=== PATIENT | male | born 1985 | race African-American/Black ===

== ENCOUNTER 2021-05-12 02:11 | Emergency (ER) | payer OTHER ==
[~2021-05-12] VITALS: Ht 165.1 cm; Wt 59.0 kg
--- NOTE | ~2021-05-12 | EMS ---
[address] [address] EMS Patient Care Report Name: FLOR MERCADO Room #: DEP SHADIA Daniel#: [id number] Admission: 05/12/21 Attend Phys: Discharge: 05/12/21 Date of : [birth year] Report #: [id number] THIS REPORT FOR: //name// Report Transmitted: 05/13/2021 12:43 EMS Care Summary [place], [place]/[facility] Incident [id number] @ 05/12/2021 01:52 Incident Location [address] [place] [id number] Patient FLOR GRIMES Male, 35 Years 1985 Patient Address HOMELESS Patient History Depression,Anxiety,Post Traumatic Stress Disorder (PTSD), Patient Allergies No known allergies, Patient Medications Seroquel, Chief Complaint FOOT PAIN Disposition Transported No Lights/[place] Dispatch Reason Sick Person Transported To [facility] Narrative ARRIVED TO FIND PT SITTING ON THE SIDE OF THE ROAD WITH PD. PT STATES HE IS HAVING PAIN IN HIS FOOT FROM WALKING ALL DAY. PT STEPS INSIDE AMBULANCE, SECURED TO COT WITH STRAPS X2. ALS ASSESSMENT VITALS OBTAINED. ENROUTE, PT CONDITION UNCHANGED. [facility] [address] [place] [address] EMS Patient Care Report Name: FLOR MERCADO Room #: DEP ER María#: [id number] Admission: 05/12/21 Attend Phys: Discharge: 05/12/21 Date of : [birth year] Report #: [id number] ARRIVED. PT TAKEN INSIDE ON COT TO ER TRIAGE. PT MOVED TO CHAIR. REPORT GIVEN TO NURSE, PT CARE TRANSFERRED. Initial Vitals @02:03P: 81,R: 16,BP: 132/80,Pain: 4/10,GCS: 15,SpO2: 99,Revised Trauma: 12, @02:07P: 76,R: 16,BP: 105/67,Pain: 4/10,GCS: 15,SpO2: 99,Revised Trauma: 12, Assessments @01:57MENTAL:Event Oriented,Place Oriented,Time Oriented,Person Oriented,SKIN:HEENT:Head/Face: No Abnormalities,Neck/Airway: No Abnormalities,LUNG SOUNDS:General: No Abnormalities,Left Upper: No Abnormalities,Right Upper: No Abnormalities,Left Lower: No Abnormalities,Right Lower: No Abnormalities,ABDOMEN:General: No Abnormalities,Left Upper: No Abnormalities,Right Upper: No Abnormalities,Left Lower: No Abnormalities,Right Lower: No Abnormalities,PELVIS//GI:No Abnormalities,EXTREMITIES:Right Leg: Other,Left Arm: No Abnormalities,Right Arm: No Abnormalities,Left Leg: No Abnormalities,PULSE:Radial: 2+ Normal,NEURO:No Abnormalities, Impression Extremity Pain Procedures @01:57ALS AssessmentResponse: UnchangedSucceeded Timeline 01:52,Call Received :52,Dispatch Notified :,Dispatched :53,En Route 01:56,On Scene 01:57,At Patient 01:57,ALS Assessment,Response: UnchangedSucceeded, 02:00,Depart Scene 02:03,BP: 132/80 M,PULSE: 81,RR: 16 R,SPO2: 99 Ox,ETCO2: ,BG: ,PAIN: 4,GCS: 15, 02:07,BP: 105/67 M,PULSE: 76,RR: 16 R,SPO2: 99 Ox,ETCO2: ,BG: ,PAIN: 4,GCS: 15, 02:10,At Destination 02:15,Call Closed Disclaimer v1.1 Copyright 2020 [employer] This EMS Care Summary contains data elements from the applicable legal record (which may be displayed differently). It is designed to provide pertinent information for the following purposes: continuity of care, clinical quality, and state data reporting. The complete legal record is available to ED staff and administrators of the receiving hospital in [employer] Patient Tracker. All data [address] [address] EMS Patient Care Report Name: FLOR MERCADO Room #: DEP ER María#: [id number] Admission: 05/12/21 Attend Phys: Discharge: 05/12/21 Date of : [birth year] Report #: [id number] is provided "as is."
[2021-05-12] MEDS ORDERED: SEROQUEL300 MG PO (02:21)
[2021-05-12] MEDS ORDERED: CEPHALEXIN500 MG PO (02:46)
[2021-05-12 03:00] VITALS: BP 110/79
== END 2021-05-12 03:01 | disposition home or self-care (01) ==
LOC: ER 02:11
DX: L03.115 Cellulitis of right lower limb (principal); R20.2 Paresthesia of skin; F32.9 Major depressive disorder, single episode, unspecified; F17.210 Nicotine dependence, cigarettes, uncomplicated; F41.9 Anxiety disorder, unspecified; Z79.899 Other long term (current) drug therapy